=== PATIENT | male | born 1940 | race Caucasian/White ===

== ENCOUNTER → 2017-04-27 | Outpatient (CLI) | payer OTHER ==
[~2017-04-27] MED LIST: AMLO10TA2 PO; FURO-93 PO; GLIM1TAB2 PO; LOSA100T6 PO; METF500T27 PO; METO-93 PO; PRAV40TA2 PO; TAMS0.4C2 PO; WARF2.5T PO
== END | disposition home or self-care (01) ==
LOC: CVU 06:45
PROVIDERS: ATTEND Internal Medicine Cardiovascular Disease
DX: I07.1 Rheumatic tricuspid insufficiency (principal); I37.1 Nonrheumatic pulmonary valve insufficiency; I10 Essential (primary) hypertension; E11.9 Type 2 diabetes mellitus without complications; I48.0 Paroxysmal atrial fibrillation; I83.93 Asymptomatic varicose veins of bilateral lower extremities
CPT/HCPCS: 93306; 93970

== ENCOUNTER 2017-12-04 02:32 | Emergency (ER) | payer OTHER ==
[~2017-12-04] VITALS: Ht 162.6 cm; Wt 81.4 kg
[~2017-12-04 02:32] MED LIST changes: -AMLO10TA2 PO; +AMLO10TA6 PO; -LOSA100T6 PO; +LOSA100T7 PO
[2017-12-04] MEDS ORDERED: HYDROcodone/APAP 5/325 TABLET PO ONE (03:00)
[2017-12-04] MEDS ORDERED: SPIR25TA5 PO (03:09)
[2017-12-04] MEDS ORDERED: EMPA25TA PO (03:09)
[2017-12-04] MEDS ORDERED: APIX2.5T PO (03:09)
[2017-12-04] MEDS ORDERED: HYDROcodone/APAP 5/325 TABLET ONE (03:11)
[2017-12-04 04:37] VITALS: BP 118/60
== END 2017-12-04 04:39 | disposition home or self-care (01) ==
LOC: ED 04:33
DX: S20.211A Contusion of right front wall of thorax, initial encounter (principal); I11.0 Hypertensive heart disease with heart failure; I50.9 Heart failure, unspecified; I48.91 Unspecified atrial fibrillation; E11.9 Type 2 diabetes mellitus without complications; W01.0XXA Fall on same level from slipping, tripping and stumbling without subsequent striking against object, initial encounter; Y93.89 Activity, other specified; Y92.098 Other place in other non-institutional residence as the place of occurrence of the external cause; Y99.8 Other external cause status
CPT/HCPCS: 93005; 99284

== ENCOUNTER → 2018-08-14 | Outpatient (CLI) | payer MEDICARE ==
[~2018-08-14] MED LIST changes: -AMLO10TA6 PO; +AMLO10TA8 PO; +APIX2.5T PO; +EMPA25TA PO; +LOSA100T14 PO; -LOSA100T7 PO; +SPIR25TA5 PO
== END | disposition home or self-care (01) ==
LOC: RAD 11:57
PROVIDERS: ATTEND Internal Medicine
DX: K22.8 Other specified diseases of esophagus (principal); K21.9 Gastro-esophageal reflux disease without esophagitis
CPT/HCPCS: 74220

== ENCOUNTER 2019-06-03 09:10 | Outpatient (CLI) | payer MEDICARE ==
[~2019-06-03 09:10] MED LIST changes: -GLIM1TAB2 PO; +GLIM1TAB7 PO
== END 2019-06-03 23:59 | disposition home or self-care (01) ==
LOC: CFH 09:10
PROVIDERS: ATTEND Internal Medicine Cardiovascular Disease
DX: I08.8 Other rheumatic multiple valve diseases (principal)
CPT/HCPCS: 93306

== ENCOUNTER 2020-05-29 07:27 | Outpatient (CLI) | payer MEDICARE ==
[~2020-05-29 07:27] MED LIST changes: +AMLO-211 PO; -AMLO10TA8 PO; -WARF2.5T PO; +WARF2.5T2 PO
== END 2020-05-29 23:59 | disposition home or self-care (01) ==
LOC: RAD 07:27
PROVIDERS: ATTEND Internal Medicine
DX: I65.23 Occlusion and stenosis of bilateral carotid arteries (principal); G31.9 Degenerative disease of nervous system, unspecified; M54.2 Cervicalgia; R27.0 Ataxia, unspecified
CPT/HCPCS: 70450; 72040; 93880